=== PATIENT | male | born 1975 | race Two or more races ===

== ENCOUNTER 2022-12-14 19:41 | Emergency (ER) | payer OTHER ==
[~2022-12-14] VITALS: Ht 172.7 cm; Wt 73.9 kg
[2022-12-14] MEDS ORDERED: GLUMETZA500 MG PO (19:56)
[2022-12-14] MEDS ORDERED: COZAAR100 MG PO (19:56)
== END 2022-12-15 00:16 | disposition home or self-care (01) ==
LOC: ER 19:41
DX: R31.9 Hematuria, unspecified (principal); I10 Essential (primary) hypertension; E11.9 Type 2 diabetes mellitus without complications; Z79.84 Long term (current) use of oral hypoglycemic drugs